=== PATIENT | female | born 1970 | race Caucasian/White ===

== ENCOUNTER 2016-12-11 20:25 | Emergency (ER) | payer OTHER ==
[~2016-12-11] VITALS: Ht 170.2 cm; Wt 80.3 kg
[2016-12-11 20:25] VITALS: BP 122/62
[2016-12-11] MEDS ORDERED: IPRATRPIUM/ALBUTEROL 0.5/2.5MG 3 ML NEBU. NEB ONE (21:10)
[2016-12-11] MEDS ORDERED: predniSONE 20 MG TABLET PO ONE (21:10)
[2016-12-11] MEDS ORDERED: PRED50TA PO (22:37)
[2016-12-11] MEDS ORDERED: ALBU8.5H8 INH (22:37)
--- NOTE | 2016-12-12 03:50 | PHYS DOC ---
Past History Past Medical History: Asthma, Hypothyroid Past Surgical History: Cholecystectomy, Other Alcohol Use: None Drug Use: None Adult General Chief Complaint Chief Complaint: ASTHMA HPI HPI 46-year-old female with a history of asthma and now presents to the emergency department complaining of wheezing after exposure to dust while cleaning the basement. Patient denies infectious prodrome of fever or productive cough. She has an inhaler but does not use it frequently. Symptoms today refractory to inhaler use. Not currently on steroids. Review of Systems Review of Systems Constitutional: Denies fever or chills [] Eyes: Denies change in visual acuity, redness, or eye pain [] HENT: Denies nasal congestion or sore throat [] Respiratory: Denies cough or shortness of breath [] Cardiovascular: No additional information not addressed in HPI [] GI: Denies abdominal pain, nausea, vomiting, bloody stools or diarrhea [] : Denies dysuria or hematuria [] Musculoskeletal: Denies back pain or joint pain [] Integument: Denies rash or skin lesions [] Neurologic: Denies headache, focal weakness or sensory changes [] Endocrine: Denies polyuria or polydipsia [] Current Medications Current Medications Current Medications Medications (Trade) Dose Ordered Sig/Pedro Start Time Stop Time Status Last Admin Dose Admin Albuterol/ Ipratropium (Duoneb) 3 ml 1X ONCE 12/11/16 21:10 12/11/16 21:11 DC 12/11/16 21:07 3 ML Prednisone (Prednisone) 60 mg 1X ONCE 12/11/16 21:10 12/11/16 21:11 DC 12/11/16 21:10 60 MG Allergies Allergies Allergies Uncoded Allergies Type Severity Reaction Last Updated Verified NARCOTIC INTOLERANCE Adverse Reaction Unknown 09/25/15 Physical Exam Physical Exam Well-appearing patient in no acute distress with rest normal respiratory rate and pulse ox after nebulizer therapy. Lungs clear after treatment with no wheezing rales rales or rhonchi. Constitutional: Well developed, well nourished, no acute distress, non-toxic appearance. [] HENT: Normocephalic, atraumatic, bilateral external ears normal, oropharynx moist, no oral exudates, nose normal. [] Eyes: PERRLA, EOMI, conjunctiva normal, no discharge. [] Neck: Normal range of motion, no tenderness, supple, no stridor. [] Cardiovascular:Heart rate regular rhythm, no murmur [] Lungs & Thorax: Bilateral breath sounds clear to auscultation [] Abdomen: Bowel sounds normal, soft, no tenderness, no masses, no pulsatile masses. [] Skin: Warm, dry, no erythema, no rash. [] Back: No tenderness, no CVA tenderness. [] Extremities: No tenderness, no cyanosis, no clubbing, ROM intact, no edema. [] Neurologic: Alert and oriented X 3, normal motor function, normal sensory function, no focal deficits noted. [] Psychologic: Affect normal, judgement normal, mood normal. [] Current Patient Data Vital Signs Vital Signs Date Time Temp Pulse Resp B/P (MAP) Pulse Ox O2 Delivery O2 Flow Rate FiO2 12/11/16 20:25 89 20 100 Room Air EKG EKG [] Radiology/Procedures Radiology/Procedures [] Course & Med Decision Making Course & Med Decision Making Pertinent Labs and Imaging studies reviewed. (See chart for details) Signs and symptoms consistent with uncomplicated asthma exacerbation patient with a long history of asthma. No evidence of infection or infectious prodrome. No fevers chills sweats or shaking chills. No productive cough. Denies pleuritic pain. No exertional chest pain. Patient with wheezes resolved after treatment steroids given in ED and prescribed as well. She is aware to use spacer with her MDI and follow up with her PCP tomorrow. Patient and spouse agree with outpatient follow-up and strict return precautions given [] Dragon Disclaimer Dragon Disclaimer This chart was dictated in whole or in part using Voice Recognition software in a busy, high-work load, and often noisy Emergency Department environment. It may contain unintended and wholly unrecognized errors or omissions. Departure Departure: Impression: Primary Impression: Asthma exacerbation Disposition: HOME, SELF-CARE Condition: IMPROVED Referrals: STEPHAN RIVER MD Patient Instructions: Asthma Attacks, Prevention Additional Instructions: Appears that your asthma has been exacerbated by her exposure to dust while cleaning the basement. Try to avoid huang environments or anything which might trigger your asthma. He was given a dose of prednisone for today. Finished prednisone once a day for 5 more days starting tomorrow as prescribed. Use your albuterol MDI with a spacer as needed for wheezing. Follow up with your doctor in 1-2 days and return immediately for new severe or worsening symptoms Scripts Albuterol Sulfate (PROAIR HFA INHALER) 8.5 Gm Hfa.aer.ad 1 PUFF INH PRN Q6HRS Y for SHORTNESS OF BREATH, #1 INHALER 0 Refills Prov: BENJAMIN VELEZ MD 12/11/16 Prednisone (PREDNISONE) 50 Mg Tablet 1 TAB PO DAILY for 5 Days, #5 TAB Prov: BENJAMIN VELEZ MD 12/11/16 BENJAMIN VELEZ MD Dec 12, 2016 03:50
--- NOTE | 2016-12-12 09:05 | RAD ---
Chest, 2 views, 12/11/2016: History: Shortness of breath, cough The heart size and pulmonary vascularity are normal. No pulmonary infiltrates are seen. There is no evidence of pleural fluid. Mild scattered spurs are present in the spine. IMPRESSION: No acute cardiopulmonary abnormality is detected.
== END 2016-12-11 21:30 | disposition home or self-care (01) ==
LOC: ER 20:25
DX: J45.901 Unspecified asthma with (acute) exacerbation (principal); E03.9 Hypothyroidism, unspecified; Z88.5 Allergy status to narcotic agent
CPT/HCPCS: 71020; 94640; 99284; J7512; J7620

== ENCOUNTER 2020-09-07 12:32 | Emergency (ER) | payer OTHER ==
[~2020-09-07] VITALS: Ht 170.2 cm; Wt 87.6 kg
[~2020-09-07 12:32] MED LIST: ALBU2.5V8 INH; PRED50TA PO
[2020-09-07] MEDS ORDERED: IV NORMAL SALINE 1,000ML 1,000 ML IV ONE (13:15)
[2020-09-07] MEDS ORDERED: ONDANSETRON PF 4 MG/2 ML VIAL. IVP ONE (13:15)
[2020-09-07] MEDS ORDERED: LIDO:MAALOX 1:1 20 ML SINGLE DOSE. PO ONE (13:15)
--- NOTE | 2020-09-07 13:27 | PHYS DOC ---
Past History Past Medical History: Asthma, Hypothyroid Past Surgical History: Cholecystectomy, Other Alcohol Use: None Drug Use: None General Adult EDM: Chief Complaint: ABDOMINAL PAIN HPI: HPI: Patient is a 50-year-old female who presents with epigastric abdominal pain. Patient states that she been having pain for the last 3 weeks but pain increased on . Patient states that she keeps having crampy, abdominal pain that shoots to the middle of her back. Pain is intermittent and increased after eating. "It only feels better when I crawl up into a position". Patient is also reporting some dizziness and nausea. Denies taking anything at home for pain. Denies vomiting, diarrhea, fever. Patient has history of GERD, hypothyroidism. Review of Systems: Review of Systems: Constitutional: Denies fever or chills Eyes: Denies change in visual acuity HENT: Denies nasal congestion or sore throat Respiratory: Denies cough or shortness of breath Cardiovascular: Denies chest pain or edema GI: Reports epigastric abdominal pain., Nausea. Denies vomiting, diarrhea : Denies dysuria Musculoskeletal: Reports pain that shoots straight through her back from her stomach, denies joint pain Integument: Denies rash Neurologic: Denies headache, focal weakness or sensory changes Endocrine: Denies polyuria or polydipsia Lymphatic: Denies swollen glands Psychiatric: Denies depression or anxiety Current Medications: Current Meds: Current Medications Medications (Trade) Dose Ordered Sig/Pedro Start Time Stop Time Status Last Admin Dose Admin Multi-Ingredient Mouthwash/Gargle (Gi Cocktail) 20 ml 1X ONCE 09/07/20 13:15 09/07/20 13:16 UNV Ondansetron HCl (Zofran) 4 mg 1X ONCE 09/07/20 13:15 09/07/20 13:16 UNV Sodium Chloride 1,000 ml @ 1,000 mls/hr 1X ONCE 09/07/20 13:15 09/07/20 14:14 UNV Allergies: Allergies: Allergies Uncoded Allergies Type Severity Reaction Last Updated Verified NARCOTIC INTOLERANCE Adverse Reaction Unknown 09/25/15 Physical Exam: PE: Constitutional: Well developed, well nourished, no acute distress, non-toxic appearance. [] HENT: Normocephalic, atraumatic, bilateral external ears normal, oropharynx moist, no oral exudates, nose normal. [] Eyes: PERRLA, EOMI, conjunctiva normal, no discharge. [] Neck: Normal range of motion, no tenderness, supple, no stridor. [] Cardiovascular:Heart rate regular rhythm, no murmur [] Lungs & Thorax: Bilateral breath sounds clear to auscultation [] Abdomen: Bowel sounds normal, soft, generalized abdominal tenderness Skin: Warm, dry, no erythema, no rash. [] Back: No tenderness, no CVA tenderness. [] Extremities: No tenderness, no cyanosis, no clubbing, ROM intact, no edema. [] Neurologic: Alert and oriented X 3, normal motor function, normal sensory function, no focal deficits noted. [] Psychologic: Affect normal, judgement normal, mood normal. [] EKG: EKG: [] Sinus rhythm. Heart rate [address] Aldana. Radiology/Procedures: Radiology/Procedures: []Study: XR CHEST 1V Indication: Dizziness. Comparison: 12/11/2016 Findings: The cardiomediastinal silhouette and kaiden are within normal limits and unchanged from 2017. No confluent airspace infiltrate, layering effusion or pneumothorax. Impression: No acute radiographic abnormality of the chest. No relevant change from the December 11, 2016 comparison. Electronically signed by: JEAN ZHAO MD (09/07/2020 1:40 PM) [id number] Study: CT abdomen/pelvis without intravenous contrast Indication: Abdominal pain. Comparison: None. Technique: Helical CT imaging performed of the abdomen and pelvis without the use of intravenous contrast. Sagittal and coronal reformats were obtained. One or more of the following individualized dose reduction techniques were utilized for this examination: 1. Automated exposure control 2. Adjustment of the mA and/or kV according to patient size 3. Use of iterative reconstruction technique. Findings: Inherently limited evaluation without intravenous contrast. No significant abnormality at the lower chest. Probable hepatic steatosis. Status post cholecystectomy. Unremarkable biliary tree. No focal pancreatic abnormality or surrounding inflammation. The spleen is within normal limits for size. No adrenal gland mass. No nephrolithiasis or collecting system dilatation on the right or left. Mildly thick-walled urinary bladder favored from underdistention. No surrounding inflammation to suggest cystitis. Unremarkable uterus. Tampon noted. There appears be a small dermoid cyst on the right, image 114 series 2. Unremarkable left adnexa. No acute abnormality of the colon. The appendix is not well-visualized and may be surgically absent. Nonobstructed small bowel. Within normal limits stomach. Minimal calcific atherosclerosis. Nonaneurysmal aorta. Scattered lymph nodes not meeting pathologic criteria based on size. No free fluid or pneumoperitoneum. No acute abnormality of the body wall soft tissues. No acute or aggressive osseous process. Impression: No acute abnormality identified throughout the abdomen or pelvis. Electronically signed by: JEAN ZHAO MD (09/07/2020 1:38 PM) [id number] Heart Score: C/O Chest Pain: No Risk Factors: Risk Factors: DM, Current or recent (<one month) smoker, HTN, HLP, family history of CAD, obesity. Risk Scores: Score 0 - 3: 2.5% MACE over next 6 weeks - Discharge Home Score 4 - 6: 20.3% MACE over next 6 weeks - Admit for Clinical Observation Score 7 - 10: 72.7% MACE over next 6 weeks - Early Invasive Strategies Course & Med Decision Making: Course & Med Decision Making Pertinent Labs and Imaging studies reviewed. (See chart for details) [] CT of abdomen pelvis is negative for any acute abnormalities. Chest x-ray is negative. Labs unremarkable. UA negative for infection. Patient states that her symptoms have resolved after the GI cocktail was given. Patient is sent home with a prescription for Protonix and Zofran. Patient has an appointment with her PCP on September 17. Patient instructed to return to emergency room if she has worsening symptoms or concerns. Patient is hemodynamically stable and able to ambulate on her own out of the emergency room. Milton Disclaimer: Milton Disclaimer: This electronic medical record was generated, in whole or in part, using a voice recognition dictation system. Departure Departure: Impression: Primary Impression: GERD (gastroesophageal reflux disease) Qualified Codes: K21.9 - Gastro-esophageal reflux disease without esophagitis Disposition: HOME SELF CARE/HOMELESS Condition: STABLE Referrals: PCP,UNKNOWN (PCP) Patient Instructions: Diet for Gastroesophageal Reflux Disease, Adult, [id number], Gastroesophageal Reflux Disease, Adult, [id number] Additional Instructions: You were seen in the emergency room today for epigastric abdominal pain. You were given a GI cocktail which helped resolve the symptoms. Please follow-up with your PCP for further management. Sending you home with medications for nausea and GERD. Please return to the emergency room with worsening symptoms or concerns. EMERGENCY DEPARTMENT GENERAL DISCHARGE INSTRUCTIONS Thank you for coming to [facility] (ED) today and trusting us with you care. We trust that you had a positivie experience in our Emergency Department. If you wish to speak to the department management, you may call the director at [phone]. YOUR FOLLOW UP INSTRUCTIONS ARE FOLLOWS: 1. Do you have a private Doctor? If you do not have a private doctor, please ask for a resource list of physicians or clinics that may be able to assist you with follow up care. 2. The Emergency Physician has interpreted your x-rays. The X-Ray specialist will also review them. If there is a change in the findings, you will be notified in 48 hours when at all possible. 3. A lab test or culture has been done, your results will be reviewed and you will be notified if you need a change in treatment. ADDITIONAL INSTRUCTIONS AND INFORMATION: 1. Your care today has been supervised by a physician who is specially trained in emergency care. Many problems require more than one evaluation for a complete diagnosis and treatment. We recommend that you schedule your follow up appointment as recommended to ensure complete treatment of you illness or injury. If you are unable to obtain follow up care and continue to have a problem, or if your condition worsens, we recommend that you return to the ED. 2. We are not able to safely determine your condition over the phone nor are we able to give sound medical advice over the phone. For these safety reasons, if you call for medical advice we will ask you to come to the ED for further evaluation. 3. If you have any questions regarding these discharge instructions please call the ED at [phone]. SAFETY INFORMATION: In the interest of safety, wellness, and injury prevention; we encourage you to wear your sealbelt, if you smoke; quite smoking, and we encourage family to use a protective helmet for bicycling and other sporting events that present an increased risk for head injury. IF YOUR SYMPTOMS WORSEN OR NEW SYMPTOMS DEVELOP, OR YOU HAVE CONCERNS ABOUT YOUR CONDITION; OR IF YOUR CONDITION WORSENS WHILE YOU ARE WAITING FOR YOUR FOLLOW UP APPOINTMENT; EITHER CONTACT YOUR PRIMARY CARE DOCTOR, THE PHYSICIAN WHOSE NAME AND NUMBER YOU WERE GIVEN, OR RETURN TO THE ED IMMEDIATELY. Scripts Ondansetron Hcl (ZOFRAN) 4 Mg Tablet 4 MG PO TID PRN PRN for NAUSEA, #9 TAB Prov: KAYA HULL APRN 09/07/20 Pantoprazole Sodium (PROTONIX) 40 Mg Tablet.dr 1 TAB PO DAILY for GERD for 30 Days, #30 TAB Prov: KAYA HULL APRN 09/07/20 KAYA HULL APRN Sep 07, 2020 13:27
[2020-09-07 13:33] LABS: BASO % 0 % (0-3); EOS # 0.2 x10^3/uL (0.0-0.7); EOS % 4 % (0-3); HEMATOCRIT 37.4 % (36.0-47.0); HEMOGLOBIN 12.4 g/dL (12.0-15.5); LYMPH % 38 % (24-48); MEAN CORPUSCULAR HEMOGLOBIN 32 pg (25-35); MEAN CORPUSCULAR HGB CONC 33 g/dL (31-37); MEAN CORPUSCULAR VOLUME 97 fL (79-100); MONO # 0.4 x10^3/uL (0.0-1.1); MONO % 8 % (0-9); NEUT # 2.6 x10^3uL (1.8-7.7); NEUT % 50 % (31-73); PLATELET COUNT 228 x10^3/uL (140-400); RED BLOOD COUNT 3.86 x10^6/uL (3.50-5.40); RED CELL DISTRIBUTION WIDTH 14.2 % (11.5-14.5); WHITE BLOOD COUNT 5.2 x10^3/uL (4.0-11.0)
[2020-09-07 13:36] LABS: CALCIUM 8.7 mg/dL (8.5-10.1); CREATININE 0.8 mg/dL (0.6-1.0); GFR 75.3; POTASSIUM 3.9 mmol/L (3.5-5.1)
--- NOTE | 2020-09-07 13:36 | EKG ---
[facility] ED [facility] [address] [place] [id number] Test Date: 2020-09-07 Test Time: 13:30:20 Pat Name: KERON LEDEZMA Department: Room: Gender: F [employer] Mgr: : [id number] Requested By: KAYA HULL Order Number: [id number] Reading MD: Measurements Intervals Oil Trough Rate: 64 P: 0 NH: 158 QRS: 0 QRSD: 72 T: 11 QT: 410 QTc: 427 Interpretive Statements SINUS RHYTHM LEFTWARD AXIS NO SPECIFIC ECG ABNORMALITIES RI6.02 No previous ECG available for comparison
--- NOTE | 2020-09-07 13:40 | RAD ---
Study: CT abdomen/pelvis without intravenous contrast Indication: Abdominal pain. Comparison: None. Technique: Helical CT imaging performed of the abdomen and pelvis without the use of intravenous cont rast. Sagittal and coronal reformats were obtained. One or more of the following individualized dose reduction techniques were utilized for this examinat ion: 1. Automated exposure control 2. Adjustment of the mA and/or kV according to patient size 3. Use of iterative reconstruction technique. Findings: Inherently limited evaluation without intravenous contrast. No significant abnormality at the lower chest. Probable hepatic steatosis. Status post cholecystectomy. Unremarkable biliary tree. No focal pancreat ic abnormality or surrounding inflammation. The spleen is within normal limits for size. No adrenal g land mass. No nephrolithiasis or collecting system dilatation on the right or left. Mildly thick-wall ed urinary bladder favored from underdistention. No surrounding inflammation to suggest cystitis. Unremarkable uterus. Tampon noted. There appears be a small dermoid cyst on the right, image 114 seri es 2. Unremarkable left adnexa. No acute abnormality of the colon. The appendix is not well-visualized and may be surgically absent. Nonobstructed small bowel. Within normal limits stomach. Minimal calcific atherosclerosis. Nonaneurysmal aorta. Scattered lymph nodes not meeting pathologic c riteria based on size. No free fluid or pneumoperitoneum. No acute abnormality of the body wall soft tissues. No acute or aggressive osseous process. Impression: No acute abnormality identified throughout the abdomen or pelvis. Electronically signed by: JEAN ZHAO MD (09/07/2020 1:38 PM) [id number]
[2020-09-07 13:42] LABS: ALBUMIN 3.5 g/dL (3.4-5.0); ALBUMIN/GLOBULIN RATIO 1.1 (1.0-1.7); TOTAL BILIRUBIN 0.3 mg/dL (0.2-1.0); TOTAL PROTEIN 6.7 g/dL (6.4-8.2)
--- NOTE | 2020-09-07 13:42 | RAD ---
Study: XR CHEST 1V Indication: Dizziness. Comparison: 12/11/2016 Findings: The cardiomediastinal silhouette and kaiden are within normal limits and unchanged from 2017. No conflu ent airspace infiltrate, layering effusion or pneumothorax. Impression: No acute radiographic abnormality of the chest. No relevant change from the December 11, 2016 comparison. Electronically signed by: JEAN ZHAO MD (09/07/2020 1:40 PM) [id number]
[2020-09-07 13:49] LABS: BACTERIA,URINE FEW /HPF (0-FEW); BILIRUBIN,URINE NEG (NEG); CLARITY,URINE CLEAR; COLOR,URINE YELLOW; GLUCOSE,URINE NEG (NEG); NITRITE,URINE NEG (NEG); SQUAMOUS EPITHELIAL CELL,UR FEW /LPF; UROBILINOGEN,URINE 0.2 mg/dL (0.2 mg/dL); WBC,URINE 0 /HPF (0-4)
[2020-09-07 14:19] VITALS: BP 126/70
[2020-09-07] MEDS ORDERED: PANT40TA3 PO (15:17)
[2020-09-07] MEDS ORDERED: ONDA4TAB7 PO (15:18)
== END 2020-09-07 15:30 | disposition home or self-care (01) ==
LOC: ER 12:32
DX: K21.9 Gastro-esophageal reflux disease without esophagitis (principal); R10.13 Epigastric pain; R42 Dizziness and giddiness; R11.0 Nausea; J45.909 Unspecified asthma, uncomplicated; E03.9 Hypothyroidism, unspecified; Z90.49 Acquired absence of other specified parts of digestive tract; Z98.890 Other specified postprocedural states; Z88.8 Allergy status to other drugs, medicaments and biological substances
CPT/HCPCS: 36415; 71045; 74176; 80053; 81001; 83690; 85025; 93005; 96361; 96374; 99285; J2405; J7030